=== PATIENT | female | born 1970 | race American Indian/Alaskan Native ===

== ENCOUNTER 2017-01-09 14:29 | Outpatient (CLI) | payer BC ==
--- NOTE | 2017-01-10 10:20 | Mammography Report ---
BILATERAL DIGITAL SCREENING MAMMOGRAM with CAD : 01/09/17 14:29:00 CLINICAL: Routine screening. COMPARISON:12/28/15 FINDINGS: The breasts are heterogeneously dense, which may obscure small masses.Stable benign cyst at 10 o'clock right breast. No mass, architectural distortion or suspicious calcifications. IMPRESSION: No mammographic evidence of malignancy. BI-RADS CATEGORY: 2 -- Benign RECOMMENDATION: Routine mammographic screening in one year.
== END 2017-01-09 14:30 | disposition home or self-care (01) ==
LOC: MAMMO 14:29
PROVIDERS: ATTEND Internal Medicine
DX: Z12.31 Encounter for screening mammogram for malignant neoplasm of breast (principal)
CPT/HCPCS: 77067; G0202

== ENCOUNTER 2017-04-20 08:35 | Outpatient (CLI) | payer BC ==
[2017-04-20 08:59] LABS: Hematocrit 47.8 % (30.3-42.9); Mean Corpuscular HGB Conc 33 % (30-34); Mean Corpuscular Hemoglobin 32 pg (28-32); Mean Corpuscular Volume 95 fl (79-97); Platelet Count 233 K/mm3 (140-440); Red Blood Count 5.04 M/mm3 (3.65-5.03); Red Cell Distribution Width 13.4 % (13.2-15.2)
[2017-04-20 09:18] LABS: Alanine Aminotransferase 20 units/L (7-56); BUN/Creatinine Ratio 15; Blood Urea Nitrogen 12 mg/dL (7-17); Calcium 10.3 mg/dL (8.4-10.2); Chol/HDL Ratio 3.86 %; HDL Cholesterol 61 mg/dL (40-59); Hemolysis Index 5; LDL Cholesterol,Direct 156 mg/dL (50-130); Uric Acid 6.7 mg/dL (3.5-7.6)
== END 2017-04-20 08:36 | disposition home or self-care (01) ==
LOC: LAB 08:35
PROVIDERS: ATTEND Internal Medicine
DX: Z00.01 Encounter for general adult medical examination with abnormal findings (principal); I10 Essential (primary) hypertension; E66.01 Morbid (severe) obesity due to excess calories; R79.89 Other specified abnormal findings of blood chemistry
CPT/HCPCS: 36415; 80053; 80061; 82306; 82607; 83036; 84443; 84550; 85027

== ENCOUNTER 2017-04-25 09:39 | Outpatient (CLI) | payer BC ==
[2017-04-25 10:12] LABS: Bilirubin,Urine NEG (Negative); Blood,Urine NEG (Negative); Color,Urine Yellow (Yellow); Mucus,Urine FEW /HPF; Protein,Urine <15 mg/dL mg/dL (Negative); RBC,Urine < 1.0 /HPF (0.0-6.0); WBC,Urine < 1.0 /HPF (0.0-6.0)
== END 2017-04-25 09:40 | disposition home or self-care (01) ==
LOC: LAB 09:39
PROVIDERS: ATTEND Nurse Practitioner
DX: Z00.01 Encounter for general adult medical examination with abnormal findings (principal); I10 Essential (primary) hypertension; E66.01 Morbid (severe) obesity due to excess calories
CPT/HCPCS: 81001

== ENCOUNTER 2018-05-07 08:28 | Outpatient (CLI) | payer BC ==
[2018-05-07 11:18] LABS: Basophils # (Auto) 0.1 K/mm3 (0.0-0.1); Basophils % (Auto) 1.1 % (0.0-1.8); Eosinophils # (Auto) 0.4 K/mm3 (0.0-0.4); Eosinophils % (Auto) 5.4 % (0.0-4.3); Hematocrit 46.4 % (30.3-42.9); Hemoglobin 15.5 gm/dl (10.1-14.3); Lymphocytes % (Auto) 25.8 % (13.4-35.0); Mean Corpuscular HGB Conc 33 % (30-34); Mean Corpuscular Volume 96 fl (79-97); Monocytes # (Auto) 0.6 K/mm3 (0.0-0.8); Monocytes % (Auto) 8.1 % (0.0-7.3); Platelet Count 205 K/mm3 (140-440); Red Blood Count 4.85 M/mm3 (3.65-5.03); Red Cell Distribution Width 13.7 % (13.2-15.2)
[2018-05-07 11:32] LABS: BUN/Creatinine Ratio 13; Blood Urea Nitrogen 9 mg/dL (7-17); Calcium 10.7 mg/dL (8.4-10.2); Chol/HDL Ratio 3.12 %; HDL Cholesterol 50 mg/dL (40-59); Hemolysis Index 26; LDL Cholesterol,Direct 95 mg/dL (50-130)
== END 2018-05-07 08:29 | disposition home or self-care (01) ==
LOC: LAB 08:28
PROVIDERS: ATTEND Internal Medicine
DX: I10 Essential (primary) hypertension (principal); E11.9 Type 2 diabetes mellitus without complications; E55.9 Vitamin D deficiency, unspecified; E66.01 Morbid (severe) obesity due to excess calories
CPT/HCPCS: 36415; 80048; 80061; 82306; 83036; 84443; 85025

== ENCOUNTER 2018-08-07 14:12 | Outpatient (CLI) | payer BC ==
--- NOTE | 2018-08-08 01:14 | XRay Report ---
PROCEDURE: XR FOOT BILAT 3+V TECHNIQUE: 3 views of each foot were obtained. HISTORY: Other hereditary and idiopathic neuropathies COMPARISONS: None FINDINGS: 3 views of the right foot show no evidence of fracture or dislocation. There is moderate size plantar calcaneal spur. The soft tissues reveal diffuse swelling around the entire ankle and foot. 3 views of the left foot show no evidence of fracture or dislocation. There is a small posterior calc aneal spur. There is diffuse soft tissue swelling around the entire foot and ankle. IMPRESSION: No evidence of fracture dislocation or significant arthritic changes in either foot. Calcaneal spurs. Nonspecific soft tissue swelling around both ankles and feet.. This document is electronically signed by Alberto Welch MD., August 08 2018 01:12:33 AM ET
== END 2018-08-07 14:13 | disposition home or self-care (01) ==
LOC: XRAY 14:12
PROVIDERS: ATTEND Podiatrist Foot & Ankle Surgery
DX: M77.32 Calcaneal spur, left foot (principal); M77.31 Calcaneal spur, right foot; M79.9 Soft tissue disorder, unspecified

== ENCOUNTER 2018-11-05 08:26 | Outpatient (CLI) | payer BC ==
[2018-11-05 11:34] LABS: Chol/HDL Ratio 2.79 %
[2018-11-08 09:01] LABS: Vitamin D, 25-OH, D2 <4 ng/mL
== END 2018-11-05 08:27 | disposition home or self-care (01) ==
LOC: LAB 08:26
PROVIDERS: ATTEND Internal Medicine
DX: E11.9 Type 2 diabetes mellitus without complications (principal); E78.00 Pure hypercholesterolemia, unspecified; E55.9 Vitamin D deficiency, unspecified; E66.01 Morbid (severe) obesity due to excess calories; I10 Essential (primary) hypertension
CPT/HCPCS: 36415; 80061; 82306; 83036

== ENCOUNTER 2019-12-16 08:37 | Outpatient (CLI) | payer BC ==
[2019-12-16 09:25] LABS: Basophils # (Auto) 0.1 K/mm3 (0.0-0.1); Basophils % (Auto) 0.8 % (0.0-1.8); Eosinophils # (Auto) 0.3 K/mm3 (0.0-0.4); Eosinophils % (Auto) 3.6 % (0.0-4.3); Hematocrit 45.6 % (30.3-42.9); Hemoglobin 14.9 gm/dl (10.1-14.3); Lymphocytes # (Auto) 1.9 K/mm3 (1.2-5.4); Lymphocytes % (Auto) 22.5 % (13.4-35.0); Mean Corpuscular HGB Conc 33 % (30-34); Mean Corpuscular Volume 96 fl (79-97); Monocytes # (Auto) 0.6 K/mm3 (0.0-0.8); Monocytes % (Auto) 7.6 % (0.0-7.3); Platelet Count 213 K/mm3 (140-440); Red Blood Count 4.76 M/mm3 (3.65-5.03); Red Cell Distribution Width 14.1 % (13.2-15.2)
[2019-12-16 09:57] LABS: Alanine Aminotransferase 20 units/L (7-56); BUN/Creatinine Ratio 14; Blood Urea Nitrogen 11 mg/dL (7-17); Chol/HDL Ratio 2.96 %; HDL Cholesterol 58 mg/dL (40-59); Hemolysis Index 6; LDL Cholesterol,Direct 109 mg/dL (50-130)
--- NOTE | 2019-12-16 17:49 | Mammography Report ---
DIGITAL SCREENING MAMMOGRAM WITH CAD, 12/16/2019 INDICATION: Routine screening mammography. TECHNIQUE: Digital bilateral 2D mammography was obtained in the craniocaudal and mediolateral obliq ue projections. This examination was interpreted with the benefit of Computer-Aided Detection analysi s. COMPARISON: 02/08/2018, 01/09/2017 FINDINGS: Breast Density: There are scattered areas of fibroglandular density. There is no evidence of dominant mass, suspicious calcifications or architectural distortion in eithe r breast. Benign nodularity is noted in the right anterior breast, unchanged from prior exam. Overall , no interval change. IMPRESSION: No evidence of malignancy. Follow up recommendation: Routine yearly BI-RADS Category 2: Benign. A "normal" or negative report should not discourage follow up or biopsy of a clinically significant f inding. A written summary of these findings will be mailed to the patient. The patient will be entered into a mammography reporting system which will generate a reminder letter for the patient's next appointmen t at the appropriate interval. The [employer] recommends yearly mammograms starting at age 40 and continuing as l marva as a woman is in good health. Breast MRI is recommended for women with an approximate 20-25% or greater lifetime risk of breast cancer, including women with a strong family history of breast or ova ol[place] cancer or who have been treated for Hodgkin's disease. Signer Name: Suinta Chong MD Signed: 12/16/2019 5:45 PM Workstation Name: [email or web address]
[2019-12-19 13:45] LABS: Vitamin D, 25-OH, D2 28 ng/mL
== END 2019-12-16 08:38 | disposition home or self-care (01) ==
LOC: LAB 08:37
PROVIDERS: ATTEND Internal Medicine
DX: Z12.31 Encounter for screening mammogram for malignant neoplasm of breast (principal); Z00.00 Encounter for general adult medical examination without abnormal findings; Z13.29 Encounter for screening for other suspected endocrine disorder; E11.9 Type 2 diabetes mellitus without complications; E78.5 Hyperlipidemia, unspecified; I10 Essential (primary) hypertension; E55.9 Vitamin D deficiency, unspecified; E66.01 Morbid (severe) obesity due to excess calories
CPT/HCPCS: 36415; 77067; 80053; 80061; 82306; 82607; 83036; 84443; 85025

== ENCOUNTER 2020-04-22 09:09 | Outpatient (CLI) | payer BC ==
[2020-04-22 09:55] LABS: Chol/HDL Ratio 2.33 %
== END 2020-04-22 09:10 | disposition home or self-care (01) ==
LOC: LAB 09:09
PROVIDERS: ATTEND Internal Medicine
DX: E11.9 Type 2 diabetes mellitus without complications (principal); E78.5 Hyperlipidemia, unspecified; Z83.52 Family history of ear disorders
CPT/HCPCS: 36415; 80061; 82330; 83036; 83970

== ENCOUNTER 2021-03-02 08:11 | Outpatient (CLI) | payer OTHER ==
--- NOTE | 2021-03-02 17:10 | Mammography Report ---
DIGITAL SCREENING MAMMOGRAM WITH CAD, 03/02/2021 CLINICAL INFORMATION / INDICATION: Routine screening mammography. SCREENING TECHNIQUE: Digital bilateral 2D mammography was obtained in the craniocaudal and mediolateral obliqu e projections. This examination was interpreted with the benefit of Computer-Aided Detection analysis . COMPARISON: 11/02/2011 through 12/16/2019. FINDINGS: Breast Density: There are scattered areas of fibroglandular density. No dominant mass, suspicious calcifications, or architectural distortion in either breast. Mild benign-appearing nodularity in the right breast is stable. IMPRESSION: No mammographic evidence of malignancy. Follow up recommendation: Routine yearly BI-RADS Category 2: BENIGN. A "normal" or negative report should not discourage follow up or biopsy of a clinically significant f inding. A written summary of these findings will be mailed to the patient. The patient will be entered into a mammography reporting system which will generate a reminder letter for the patient's next appointmen t at the appropriate interval. The [employer] recommends yearly mammograms starting at age 40 and continuing as l marva as a woman is in good health. Breast MRI is recommended for women with an approximate 20-25% or greater lifetime risk of breast cancer, including women with a strong family history of breast or ova ol[place] cancer or who have been treated for Hodgkin's disease. Signer Name: Alberto Thompson MD Signed: 03/02/2021 5:05 PM Workstation Name: [id number]
== END 2021-03-02 08:12 | disposition home or self-care (01) ==
LOC: MAMMO 08:11
PROVIDERS: ATTEND Internal Medicine
DX: Z12.31 Encounter for screening mammogram for malignant neoplasm of breast (principal); D24.1 Benign neoplasm of right breast
CPT/HCPCS: 77067